=== PATIENT | male | born 1945 | race African-American/Black ===

== ENCOUNTER 2022-11-30 07:30 | Observation (INO) ==
[~2022-11-30 07:30] MED LIST: STERILE WATER IRRIGATION IR ONE
[2022-12-14] MEDS ORDERED: ANCEF VIAL 1 GRAM ONE (06:53)
[2022-12-14] MEDS ORDERED: NS 100 ML IV 100 ML ONE (06:56)
[2022-12-14] MEDS ORDERED: LR 1,000 ML IV 1,000 ML IV ONE ×2 (06:57)
[2022-12-14] MEDS ORDERED: OFIRMEV IV 1000 MG VIAL 1,000 MG/100 ML VIAL IV ONE (07:00)
[2022-12-14] MEDS ORDERED: DIPRIVAN VIAL 20 ML ONE (07:00)
[2022-12-14] MEDS ORDERED: XYLOCAINE 2 % (PLAIN) ONE (07:00)
[2022-12-14] MEDS ORDERED: ZOFRAN INJ 4 MG VIAL ONE (07:01)
[2022-12-14] MEDS ORDERED: DECADRON INJ ONE ×2 (07:01→08:15)
[2022-12-14] MEDS ORDERED: PHENERGAN INJ 25 MG IM ONE (07:01)
[2022-12-14] MEDS ORDERED: ZEMURON 100 MG VIAL ONE (07:01)
[2022-12-14] MEDS ORDERED: ROBINUL ONE (07:01)
[2022-12-14] MEDS ORDERED: BRIDION ONE (07:01)
[2022-12-14] MEDS ORDERED: NAROPIN 0.75% EPI ONE (07:01)
[2022-12-14] MEDS ORDERED: FENTANYL VIAL INJ 100 mcg ONE (07:04)
[2022-12-14] MEDS ORDERED: VERSED ONE (07:04)
[2022-12-14 07:15] VITALS: BMI 26.3
[2022-12-14] MEDS ORDERED: MARCAINE 0.25% INJ ONE (07:23)
[2022-12-14] MEDS ORDERED: ULTANE GAS IN ONE ×2 (07:59→08:39)
[2022-12-14] MEDS ORDERED: KETAMINE HCL ONE (07:59)
[2022-12-14] MEDS ORDERED: LACRI-LUBE S.O.P. ONE (08:15)
[2022-12-14] MEDS ORDERED: EPHEDRINE SULFATE INJ ONE (08:22)
[2022-12-14] MEDS ORDERED: PRECEDEX INJ VIAL IVP ONE (08:31)
[2022-12-14] MEDS ORDERED: PEPCID 20 MG VIAL ONE (08:31)
[2022-12-14] MEDS ORDERED: NS 1,000 ML IV 1,000 ML ONE (08:39)
[2022-12-14] MEDS ORDERED: DILAUDID INJ IVP PRN (10:13)
[2022-12-14] MEDS ORDERED: BENADRYL INJ 50 MG VIAL IVP PRN (10:13)
[2022-12-14] MEDS ORDERED: BARHEMSYS INJ IVP PRN (10:13)
[2022-12-14] MEDS ORDERED: VANCOMYCIN HCL ONE (10:17)
[2022-12-14] MEDS ORDERED: TOBRAMYCIN SULFATE ONE (10:17)
[2022-12-14] MEDS ORDERED: MORPHINE SULFATE INJ 10 MG ONE (10:47)
[2022-12-14] MEDS ORDERED: ZOFRAN INJ 4 MG VIAL IVP PRN (11:17)
[2022-12-14] MEDS ORDERED: TYLENOL 325 MG TAB PO PRN (11:17)
[2022-12-14] MEDS ORDERED: LR 1,000 ML IV 1,000 ML IV SCH (12:00)
[2022-12-14] MEDS ORDERED: TORADOL 30 MG VIAL IVP SCH (12:00)
[2022-12-14] MEDS: NEURONTIN CAP 300 MG PO SCH (20:30)
[2022-12-14] MEDS: COLACE CAP 100 MG PO SCH (20:46)
[2022-12-14] MEDS: PERCOCET TAB 5/325 MG PO PRN ×2 (23:00→23:30)
[2022-12-15] MEDS: DILAUDID INJ IVP PRN (01:50)
[2022-12-15 04:55] LABS: BLOOD UREA NITROGEN 17 mg/dL (7-18); CALCIUM 8.7 mg/dL (8.5-10.1); CARBON DIOXIDE 28.3 mmol/L (21-32); CHLORIDE 103 mmol/L (98-107); COR NA(FOR HYPERGLY) 142 mmol/L (136-145); CREATININE 0.93 mg/dL (0.70-1.30); GLUCOSE 136 mg/dL (65-99); POTASSIUM 3.8 mmol/L (3.5-5.1); SODIUM 141 mmol/L (136-145); eGFR NON BLACK RACES > 60 (>60)
[2022-12-15] MEDS ORDERED: TORADOL 30 MG VIAL ONE (05:40)
[2022-12-15] MEDS: TORADOL 30 MG VIAL IVP PRN (05:45)
[2022-12-15] MEDS: NEURONTIN CAP 300 MG PO SCH ×2 (09:19→21:15)
[2022-12-15] MEDS: LOVENOX INJ 40 MG SYR SC SCH (09:20)
[2022-12-15] MEDS: PERCOCET TAB 5/325 MG PO PRN ×3 (09:20→18:15)
[2022-12-15] MEDS ORDERED: TORADOL 30 MG VIAL IM PRN (11:19)
[2022-12-15] MEDS ORDERED: MAGNESIUM SULFATE 1 GRAM/100 mL PREMIX 1 G/100 ML BAG IV PRN (14:21)
[2022-12-15] MEDS ORDERED: POTASSIUM CHL 40 MEQ/NS 0.45% 500 ML IV PRN (14:21)
[2022-12-15] MEDS ORDERED: K-DUR TAB 20 MEQ PO PRN (14:21)
[2022-12-15] MEDS ORDERED: POTASSIUM CHLORIDE LIQ PO PRN (14:21)
[2022-12-15] MEDS ORDERED: KLOR-CON PO PRN (14:21)
[2022-12-15] MEDS ORDERED: MICRO K EXTEN CAP 10 MEQ PO PRN (14:21)
[2022-12-15] MEDS ORDERED: K-RIDER 10 MEQ/NS 100 ML 10 MEQ/100 ML BAG IV PRN (14:21)
[2022-12-15] MEDS ORDERED: POTASSIUM CHL 60 MEQ/NS 0.45% 500 ML IV PRN (14:21)
[2022-12-15] MEDS: COLACE CAP 100 MG PO SCH (21:15)
[2022-12-16] MEDS: PERCOCET TAB 5/325 MG PO PRN ×3 (00:40→11:21)
[2022-12-16 05:07] LABS: BASOPHILS % (AUTO) 0.6 % (0.2-1.0); EOSINOPHILS # (AUTO) 0.1 x10^3/uL (0.0-0.2); HEMATOCRIT 29.3 % (42.0-54.0); HEMOGLOBIN 10.3 g/dL (13.5-18.0); LYMPHOCYTES # (AUTO) 2.3 X10^3/uL (1.3-2.9); LYMPHOCYTES % (AUTO) 36.9 % (21.0-51.0); MEAN CORPUSCULAR HEMOGLOBIN 33.5 pg (27.0-34.0); MEAN CORPUSCULAR VOLUME 95.8 fL (80.0-100.0); MEAN PLATELET VOLUME 7.9 fL (7.4-11.0); MONOCYTES # (AUTO) 0.6 x10^3/uL (0.3-0.8); MONOCYTES % (AUTO) 9.1 % (0.0-13.0); NEUTROPHILS # (AUTO) 3.2 x10^3/uL (2.2-4.8); NEUTROPHILS % (AUTO) 51.4 % (42.0-75.0); PLATELET COUNT 183 X10^3/uL (150.0-450.0); RED BLOOD COUNT 3.06 X10^6/uL (4.7-6.0); RED CELL DISTRIBUTION WIDTH 14.6 % (11.6-16.5); WHITE BLOOD COUNT 6.2 X10^3/uL (3.6-10.0)
[2022-12-16] MEDS: NEURONTIN CAP 300 MG PO SCH ×2 (09:56→21:59)
[2022-12-16] MEDS: LOVENOX INJ 40 MG SYR SC SCH (09:56)
[2022-12-16] MEDS: DILAUDID INJ IVP PRN ×2 (12:46→21:56)
[2022-12-16] MEDS: TORADOL 30 MG VIAL IVP PRN (19:55)
[2022-12-16] MEDS: COLACE CAP 100 MG PO SCH (21:58)
[2022-12-17] MEDS: PERCOCET TAB 5/325 MG PO PRN (08:24)
[2022-12-17] MEDS: LOVENOX INJ 40 MG SYR SC SCH (08:24)
[2022-12-17] MEDS: NEURONTIN CAP 300 MG PO SCH ×2 (08:24→20:30)
[2022-12-17] MEDS: DILAUDID INJ IVP PRN ×3 (10:09→19:51)
[2022-12-17] MEDS: COLACE CAP 100 MG PO SCH (20:30)
[2022-12-17] MEDS: MILK OF MAGNESIA PO PRN (21:30)
[2022-12-18] MEDS: PERCOCET TAB 5/325 MG PO PRN ×3 (01:12→16:07)
[2022-12-18] MEDS: NEURONTIN CAP 300 MG PO SCH ×2 (09:23→20:02)
[2022-12-18] MEDS: LOVENOX INJ 40 MG SYR SC SCH (09:24)
[2022-12-18] MEDS: COLACE CAP 100 MG PO SCH (20:02)
[2022-12-18] MEDS: MILK OF MAGNESIA PO PRN (20:04)
[2022-12-18] MEDS: DILAUDID INJ IVP PRN (23:44)
[2022-12-19] MEDS: PERCOCET TAB 5/325 MG PO PRN ×3 (05:40→20:22)
[2022-12-19] MEDS: NEURONTIN CAP 300 MG PO SCH ×2 (08:52→20:20)
[2022-12-19] MEDS: LOVENOX INJ 40 MG SYR SC SCH (08:52)
[2022-12-19] MEDS ORDERED: NORVASC TAB 2.5 MG ONE ×2 (10:43→19:22)
[2022-12-19] MEDS: NORVASC TAB 2.5 MG PO SCH ×2 (10:45→20:20)
[2022-12-19] MEDS: VITAMIN D3 125 mcg (5,000 UNITS) PO SCH (10:45)
[2022-12-19] MEDS: MILK OF MAGNESIA PO SCH ×2 (14:59→20:22)
[2022-12-19] MEDS: DILAUDID INJ IVP PRN ×2 (16:57→22:33)
[2022-12-19] MEDS ORDERED: GLUCOPHAGE ONE (20:15)
[2022-12-19] MEDS: GLUCOPHAGE PO SCH ×2 (20:21→20:23)
[2022-12-19] MEDS: COLACE CAP 100 MG PO SCH (20:21)
[2022-12-20] MEDS: PERCOCET TAB 5/325 MG PO PRN ×2 (05:07→11:08)
[2022-12-20 05:47] LABS: EOSINOPHILS # (AUTO) 0.3 x10^3/uL (0.0-0.2); EOSINOPHILS % (AUTO) 5.9 % (0.9-2.9); HEMATOCRIT 32.4 % (42.0-54.0); LYMPHOCYTES % (AUTO) 44.8 % (21.0-51.0); MEAN CORPUSCULAR HEMOGLOBIN 32.7 pg (27.0-34.0); MEAN CORPUSCULAR HGB CONC 34.1 g/dL (33.0-35.0); MEAN PLATELET VOLUME 7.5 fL (7.4-11.0); MONOCYTES # (AUTO) 0.4 x10^3/uL (0.3-0.8); MONOCYTES % (AUTO) 8.9 % (0.0-13.0); NEUTROPHILS # (AUTO) 1.7 x10^3/uL (2.2-4.8); NEUTROPHILS % (AUTO) 39.4 % (42.0-75.0); PLATELET COUNT 240 X10^3/uL (150.0-450.0); RED BLOOD COUNT 3.38 X10^6/uL (4.7-6.0); RED CELL DISTRIBUTION WIDTH 14.5 % (11.6-16.5); WHITE BLOOD COUNT 4.4 X10^3/uL (3.6-10.0)
[2022-12-20 06:07] LABS: ALANINE AMINOTRANSFERASE 24 Units/L (12-78); ALKALINE PHOSPHATASE 50 Units/L (46-116); ASPARTATE AMINO TRANSFERASE 18 Units/L (15-37); BLOOD UREA NITROGEN 12 mg/dL (7-18); CALCIUM 8.6 mg/dL (8.5-10.1); CARBON DIOXIDE 32.7 mmol/L (21-32); CHLORIDE 104 mmol/L (98-107); COR CA(FOR HYPOALB) 9.4 mg/dL (8.5-10.1); COR NA(FOR HYPERGLY) 141 mmol/L (136-145); CREATININE 0.87 mg/dL (0.70-1.30); GLUCOSE 112 mg/dL (65-99); POTASSIUM 4.3 mmol/L (3.5-5.1); SODIUM 141 mmol/L (136-145); TOTAL PROTEIN 6.5 g/dL (6.4-8.2); eGFR NON BLACK RACES > 60 (>60)
[2022-12-20] MEDS ORDERED: GLUCOPHAGE ONE ×2 (07:24→19:54)
[2022-12-20] MEDS ORDERED: NORVASC TAB 2.5 MG ONE ×2 (07:25→19:55)
[2022-12-20] MEDS: MILK OF MAGNESIA PO SCH ×2 (08:56→20:47)
[2022-12-20] MEDS: LOVENOX INJ 40 MG SYR SC SCH (08:56)
[2022-12-20] MEDS: NORVASC TAB 2.5 MG PO SCH ×2 (08:57→20:48)
[2022-12-20] MEDS: VITAMIN D3 125 mcg (5,000 UNITS) PO SCH (08:57)
[2022-12-20] MEDS: GLUCOPHAGE PO SCH ×2 (08:57→20:51)
[2022-12-20] MEDS: NEURONTIN CAP 300 MG PO SCH ×2 (08:57→20:48)
--- NOTE | 2022-12-20 09:33 | RAD ---
HISTORYNURSING HOME PLACEMENTSTUDYCHEST, 1 [id number]/01/2023FINDINGSThe trachea is midline. The cardiac silhouette is unremarkable . The lungs are clear without focal infiltrate or effusion. The bony thorax is unremarkable.IMPRESSIONNo acute cardiopulmonary disease.Electronically signed by: RUBIN CAMPBELL (Dec 20, 2022 09:32:16)
[2022-12-20] MEDS: VITAMIN B-12 PO SCH (10:24)
[2022-12-20] MEDS: HYDROCHLOROTHIAZIDE 25 MG TAB PO SCH (10:24)
[2022-12-20] MEDS: APRESOLINE TAB 25 MG PO SCH ×3 (14:04→20:48)
--- NOTE | 2022-12-20 15:34 | NOTE.SOAP ---
Soap Note Note for Day of Date of Exam: 12/20/22 Subjective Data Subjective Data: Patient seen bedside today for follow up of total ankle replacement performed by Dr. Dumont last Monday. Patient is doing well post operatively and has no complaints. Denies f,c,n,v,sob, and cp. Objective Data Objective Data: Right lower extremity with bandage and posterior splint in place. Surgical incision to anterior ankle appears healthy. Skin in good apposition, stitches intact. No drainage or strikethrough on bandages. No evidence of infection. No evidence of DVT. No evidence of compartment syndrome. 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 Will need to schedule follow up appointment with Dr. Dumont as outpatient. I did provide the number to patient and reminded him to call or have the facility call for appointment. -NWB to R foot until skin heals, then he will need aggressive physical therapy to regain as much ankle ROM as possible. -Leave splint intact. Reinforce prn. Changed today by myself and nursing staff. -Meds and instruction in chart. -Will follow as needed while in hospital
[2022-12-20] MEDS: DILAUDID INJ IVP PRN (16:34)
[2022-12-20] MEDS ORDERED: MAALOX or MYLANTA PO PRN (20:12)
[2022-12-20] MEDS: COLACE CAP 100 MG PO SCH (20:47)
[2022-12-21] MEDS: PERCOCET TAB 5/325 MG PO PRN ×3 (00:18→08:35)
[2022-12-21 05:31] LABS: BASOPHILS # (AUTO) 0.1 X10^3/uL (0.0-0.1); BASOPHILS % (AUTO) 1.2 % (0.2-1.0); EOSINOPHILS # (AUTO) 0.1 x10^3/uL (0.0-0.2); HEMATOCRIT 33.6 % (42.0-54.0); HEMOGLOBIN 11.7 g/dL (13.5-18.0); LYMPHOCYTES # (AUTO) 1.6 X10^3/uL (1.3-2.9); LYMPHOCYTES % (AUTO) 23.3 % (21.0-51.0); MEAN CORPUSCULAR HEMOGLOBIN 32.9 pg (27.0-34.0); MEAN CORPUSCULAR HGB CONC 34.8 g/dL (33.0-35.0); MEAN CORPUSCULAR VOLUME 94.6 fL (80.0-100.0); MEAN PLATELET VOLUME 7.6 fL (7.4-11.0); MONOCYTES # (AUTO) 0.4 x10^3/uL (0.3-0.8); MONOCYTES % (AUTO) 5.7 % (0.0-13.0); NEUTROPHILS # (AUTO) 4.8 x10^3/uL (2.2-4.8); NEUTROPHILS % (AUTO) 68.8 % (42.0-75.0); PLATELET COUNT 275 X10^3/uL (150.0-450.0); RED BLOOD COUNT 3.56 X10^6/uL (4.7-6.0); RED CELL DISTRIBUTION WIDTH 14.4 % (11.6-16.5)
[2022-12-21 05:41] LABS: ALANINE AMINOTRANSFERASE 25 Units/L (12-78); ALBUMIN 3.2 g/dL (3.4-5.0); ALKALINE PHOSPHATASE 56 Units/L (46-116); ASPARTATE AMINO TRANSFERASE 19 Units/L (15-37); BLOOD UREA NITROGEN 15 mg/dL (7-18); CARBON DIOXIDE 32.6 mmol/L (21-32); CHLORIDE 101 mmol/L (98-107); COR CA(FOR HYPOALB) 9.6 mg/dL (8.5-10.1); COR NA(FOR HYPERGLY) 140 mmol/L (136-145); GLUCOSE 118 mg/dL (65-99); POTASSIUM 4.1 mmol/L (3.5-5.1); SODIUM 140 mmol/L (136-145); TOTAL PROTEIN 6.9 g/dL (6.4-8.2); eGFR NON BLACK RACES > 60 (>60)
[2022-12-21] MEDS ORDERED: NORVASC TAB 2.5 MG ONE (07:22)
[2022-12-21] MEDS ORDERED: GLUCOPHAGE ONE (07:22)
[2022-12-21] MEDS: APRESOLINE TAB 25 MG PO SCH (08:00)
[2022-12-21] MEDS: GLUCOPHAGE PO SCH (08:00)
[2022-12-21] MEDS: LOVENOX INJ 40 MG SYR SC SCH (08:00)
[2022-12-21] MEDS: HYDROCHLOROTHIAZIDE 25 MG TAB PO SCH (08:00)
[2022-12-21] MEDS: NORVASC TAB 2.5 MG PO SCH (08:01)
[2022-12-21] MEDS: NEURONTIN CAP 300 MG PO SCH (08:01)
[2022-12-21] MEDS: VITAMIN D3 125 mcg (5,000 UNITS) PO SCH (08:01)
[2022-12-21] MEDS: VITAMIN B-12 PO SCH (08:03)
[2022-12-21] MEDS: MILK OF MAGNESIA PO SCH (08:03)
[2022-12-21 09:34] VITALS: RESP 18
[2022-12-21] MEDS ORDERED: BENICAR PO SCH (10:00)
[2022-12-21 12:36] VITALS: BP 120/79; PULSE 61; TEMP 98.3; O2SAT 95
== END 2022-12-21 14:38 ==
LOC: MED/SURG → EDUNIT# 07:30 → MED/SURG 12-16 17:12
PROVIDERS: ADMIT Obstetrics & Gynecology Obstetrics; ATTEND Obstetrics & Gynecology Obstetrics
PROC: HARDREM (ICD-10-PCS; 2022-12-14 07:40)
DX: M19.172 Post-traumatic osteoarthritis, left ankle and foot; T84.84XA Pain due to internal orthopedic prosthetic devices, implants and grafts, initial encounter; I10 Essential (primary) hypertension; M96.0 Pseudarthrosis after fusion or arthrodesis